=== PATIENT | female | born 1985 | race Two or more races ===

== ENCOUNTER 2018-01-08 08:36 | Outpatient (CLI) | payer OTHER | END 2018-01-08 08:46 | disposition home or self-care (01) | LOC: SONOGRAMA 08:36 | DX: N84.0 Polyp of corpus uteri (principal) ==

== ENCOUNTER 2021-03-24 09:53 | Inpatient (IN) | payer OTHER ==
[~2021-03-24] VITALS: Ht 149.9 cm; Wt 57.2 kg
[2021-03-24] MEDS ORDERED: PRENATAL TABLE1 EAC1 PO (11:01)
[2021-03-26] MEDS ORDERED: NIFEDIPINE ER60 MG PO (10:43)
[2021-03-26] MEDS ORDERED: AMPICILLIN TRI500 MG PO (10:43)
== END 2021-03-26 12:59 | disposition home or self-care (01) | DRG 832 ==
LOC: NST 09:53 → LDR 10:14 → OB/GYN 03-25 12:41
PROVIDERS: ADMIT Obstetrics & Gynecology; ATTEND Obstetrics & Gynecology
PROC: 4A1HXFZ Monitoring of Products of Conception, Cardiac Rhythm, External Approach (ICD-10-PCS; principal; 2021-03-24)
DX: O60.03 Preterm labor without delivery, third trimester (principal); O23.43 Unspecified infection of urinary tract in pregnancy, third trimester; Z3A.34 34 weeks gestation of pregnancy; Z20.822 Contact with and (suspected) exposure to COVID-19

== ENCOUNTER 2021-03-29 09:36 | Outpatient (CLI) | payer OTHER ==
[~2021-03-29 09:36] MED LIST: AMPICILLIN TRI500 MG PO; NIFEDIPINE ER60 MG PO; PRENATAL TABLE1 EAC1 PO
== END 2021-03-29 10:15 | disposition home or self-care (01) ==
LOC: NST 09:36
PROVIDERS: ATTEND Obstetrics & Gynecology Maternal & Fetal Medicine
DX: O33.1 Maternal care for disproportion due to generally contracted pelvis (principal)

== ENCOUNTER 2021-04-05 09:55 | Outpatient (CLI) | payer OTHER | END 2021-04-05 10:33 | disposition home or self-care (01) | LOC: NST 09:55 | PROVIDERS: ATTEND Obstetrics & Gynecology | DX: O33.1 Maternal care for disproportion due to generally contracted pelvis (principal) ==

== ENCOUNTER 2021-04-12 09:46 | Outpatient (CLI) | payer OTHER | END 2021-04-12 10:53 | disposition home or self-care (01) | LOC: NST 09:46 | PROVIDERS: ATTEND Obstetrics & Gynecology | DX: Z34.83 Encounter for supervision of other normal pregnancy, third trimester (principal) ==

== ENCOUNTER 2021-04-19 10:26 | Outpatient (CLI) | payer OTHER | END 2021-04-19 11:06 | disposition home or self-care (01) | LOC: NST 10:26 | PROVIDERS: ATTEND Obstetrics & Gynecology Maternal & Fetal Medicine | DX: Z34.83 Encounter for supervision of other normal pregnancy, third trimester (principal) ==

== ENCOUNTER 2021-04-22 08:22 | Outpatient (CLI) | payer OTHER | END 2021-04-22 09:10 | disposition home or self-care (01) | LOC: NST 08:22 | PROVIDERS: ATTEND Obstetrics & Gynecology Maternal & Fetal Medicine | DX: Z34.83 Encounter for supervision of other normal pregnancy, third trimester (principal) ==

== ENCOUNTER 2021-04-22 12:45 | Inpatient (IN) | payer OTHER ==
[~2021-04-22] VITALS: Ht 149.9 cm; Wt 1.8 kg
== END 2021-05-03 17:58 | disposition home or self-care (01) | DRG 786 ==
LOC: LDR 04-28 11:39 → OB/GYN 04-30 10:48
PROVIDERS: ADMIT Obstetrics & Gynecology Maternal & Fetal Medicine; ATTEND Obstetrics & Gynecology Maternal & Fetal Medicine
PROC: 3E0P7VZ Introduction of Hormone into Female Reproductive, Via Natural or Artificial Opening (ICD-10-PCS; 2021-04-29)
PROC: 4A1HXFZ Monitoring of Products of Conception, Cardiac Rhythm, External Approach (ICD-10-PCS; 2021-04-29)
PROC: 10D00Z1 Extraction of Products of Conception, Low, Open Approach (ICD-10-PCS; principal; 2021-04-29 12:00)
DX: O61.0 Failed medical induction of labor (principal); O14.13 Severe pre-eclampsia, third trimester; Z3A.37 37 weeks gestation of pregnancy; Z37.0 Single live birth; Z20.822 Contact with and (suspected) exposure to COVID-19

== ENCOUNTER 2021-04-26 10:21 | Outpatient (CLI) | payer OTHER | END 2021-04-26 11:11 | disposition home or self-care (01) | LOC: NST 10:21 | PROVIDERS: ATTEND Obstetrics & Gynecology | DX: Z34.83 Encounter for supervision of other normal pregnancy, third trimester (principal) ==

== ENCOUNTER 2021-04-28 08:10 | Outpatient (CLI) | payer OTHER | END 2021-04-28 08:55 | disposition home or self-care (01) | LOC: NST 08:10 | PROVIDERS: ATTEND Obstetrics & Gynecology | DX: Z34.83 Encounter for supervision of other normal pregnancy, third trimester (principal) ==

== ENCOUNTER 2022-12-08 11:15 | Inpatient (IN) | payer OTHER ==
[~2022-12-08] VITALS: Ht 149.9 cm; Wt 2.7 kg
== END 2022-12-16 12:58 | disposition home or self-care (01) | DRG 785 ==
LOC: O/R 12-13 07:29 → OB/GYN 12-13 11:15
PROVIDERS: ADMIT Obstetrics & Gynecology Gynecology; ATTEND Obstetrics & Gynecology Gynecology
PROC: 0UB70ZZ Excision of Bilateral Fallopian Tubes, Open Approach (ICD-10-PCS; 2022-12-13)
PROC: 4A1HXCZ Monitoring of Products of Conception, Cardiac Rate, External Approach (ICD-10-PCS; 2022-12-13)
PROC: 10D00Z1 Extraction of Products of Conception, Low, Open Approach (ICD-10-PCS; principal; 2022-12-13 13:05)
DX: O34.211 Maternal care for low transverse scar from previous cesarean delivery (principal); Z30.2 Encounter for sterilization; Z3A.39 39 weeks gestation of pregnancy; Z37.0 Single live birth; Z20.822 Contact with and (suspected) exposure to COVID-19